=== PATIENT | female | born 1955 | race Caucasian/White ===

== ENCOUNTER 2020-01-15 12:29 | Outpatient (CLI) | payer OTHER, SELFPAY ==
--- NOTE | ~2020-01-15 | MR_ITS ---
EXAMINATION: MR knee LT wo con DATE: 01/15/2020 13:13 INDICATION: Acute left knee pain TECHNIQUE: Magnetic resonance imaging (MRI) of the left knee was performed without intravenous contra st. Sequences included coronal PD-weighted FSE, coronal PD-weighted FS FSE, sagittal T2-weighted FSE , sagittal PD-weighted FS FSE and axial PD weighted fat saturated FSE. COMPARISON: None. FINDINGS: Medial compartment: Full/near full-thickness radial tear at the posterior root of the medial meniscus. There is mild incr eased intrasubstance signal which does not unambiguously contact the articular surface to suggest add itional tear consistent with mucoid degeneration at the posterior body of the medial meniscus. Small region of deep chondral fissuring at the junction of the central to posterior weightbearing medial fe moral condyle. Partial thickness cartilage loss with mild chondral surface regularity at the anterior weightbearing medial femoral condyle. Lateral compartment: Lateral meniscus is normal. Articular cartilage is normal. Patellofemoral compartment: Full/near full-thickness chondral ulceration at the cephalad aspect of the patellar apical ridge with mild underlying subarticular edema at the patellar apical ridge. Additional deep chondral fissuring with mild subarticular edema at the more inferior medial facet. Deep chondral fissuring with mild und erlying cortical irregularity and subcortical edema at the central aspect of the trochlear groove and extending into the inferior aspect of the medial facet. Ligaments and tendons: Anterior and posterior cruciate ligaments are normal. There is mild edema extending along the deep an d superficial margin of the otherwise normal-appearing medial collateral ligament consistent with low -grade sprain. The extensor mechanism is normal. The visualized medial and lateral hamstring tendons as well as the iliotibial band are normal. Fluid: Small left knee joint effusion. No loose osteochondral bodies identified. Moderate-sized Roger's cyst . Osseous/other: Normal marrow signal centrally previously noted subarticular edema at the patellofemoral compartment. No fracture or pathologic marrow replacing process. IMPRESSION: 1. Full/near full-thickness radial tear at the posterior root of the medial meniscus. 2. Mild osteoarthritis in the medial and patellofemoral compartments with moderate grade chondromalac ia at the former and high-grade chondromalacia at the latter. 3. Low-grade sprain of the medial collateral ligament. 2. Small left knee joint effusion and moderate-sized Roger's cyst. Reviewed, dictated and finalized at location A. [employer] IMPRESSION: 1. Full/near full-thickness radial tear at the posterior root of the medial men iscus. 2. Mild osteoarthritis in the medial and patellofemoral compartments with moder ate grade chondromalacia at the former and high-grade chondromalacia at the lat ter. 3. Low-grade sprain of the medial collateral ligament. 2. Small left knee joint effusion and moderate-sized Roger's cyst.
== END 2020-01-15 12:30 ==
DX: M25.569 Pain in unspecified knee (principal); S83.242A Other tear of medial meniscus, current injury, left knee, initial encounter; M17.12 Unilateral primary osteoarthritis, left knee; M94.262 Chondromalacia, left knee; S83.412A Sprain of medial collateral ligament of left knee, initial encounter; M25.462 Effusion, left knee; M71.22 Synovial cyst of popliteal space [Baker], left knee
CPT/HCPCS: 73721

== ENCOUNTER 2020-12-03 14:22 | Emergency (ER) | payer OTHER, SELFPAY ==
--- NOTE | ~2020-12-03 | CT_ITS ---
EXAMINATION: CT abdomen pelvis w con INDICATION: Right lower quadrant pain TECHNIQUE: Computed tomographic images of the abdomen and pelvis were obtained after the administrati on of 100 cc of Omnipaque 350 intravenous contrast. The dose-length product (DLP) was 361.38 mGy-cm. Automated exposure control and iterative reconstruction technique were employed. COMPARISON: 05/13/2008 FINDINGS: The lung bases are clear. The heart size is normal. The liver is diffusely low in attenuati on when compared with the spleen, consistent with hepatic steatosis. The spleen, pancreas, gallbladde r, and adrenal glands are normal. The right kidney is normal. There is 3 mm cyst of the left kidney. A retroaortic left renal vein is noted. There is calcified atherosclerosis of the aorta and many of t he other arteries. No pathologically enlarged abdominal or pelvic lymph nodes are identified. The debbie endix is not definitely identified however no right lower quadrant inflammatory change is seen. There is a tiny focus of gas in the urinary bladder which could be due to catheterization. There is modera te lumbar spondylosis. IMPRESSION: 1. No CT correlate for the patient's symptoms. Reviewed, dictated and finalized at location A.
[2020-12-03 14:27] VITALS: BP 154/53; PULSE 57; RESP 20; TEMP 36.6; O2SAT 99
--- NOTE | 2020-12-03 15:26 | ED_ITS ---
HPI - Abdominal Pain General Chief Complaint: Abdominal Pain Stated Complaint: abd pain Time Seen by Provider: 12/03/20 15:26 Source: patient Related Data Allergies Allergy/AdvReac Type Severity Reaction Status Date / Time bupropion Allergy Unknown Unknown Verified 12/02/20 14:05 [facility] Past Medical History Medical History History of adverse reaction to anesthesia Unintentional weight loss Surgical History Surgical History History of hysterectomy 2006 Hx of appendectomy 1974 Family History Family History Other Arthritis Cerebrovascular accident Diabetes mellitus Heart disease High cholesterol Hypertension Social History Social History (Updated 12/02/20 @ 14:05 by Poppy Marquis CMA) Smoking status: Former smoker Tobacco type: cigarettes Alcohol intake: current Substance use: never Course Vital Signs Vital signs: Vital Signs Temperature 36.6 C 12/03/20 14:27 Pulse Rate 57 L 12/03/20 14:27 Respiratory Rate 20 12/03/20 14:27 Blood Pressure 154/53 H 12/03/20 14:27 Pulse Oximetry 99 12/03/20 14:27 Temperature 36.6 C 12/03/20 14:27 Pulse Rate 57 L 12/03/20 14:27 Respiratory Rate 20 12/03/20 14:27 Blood Pressure 154/53 H 12/03/20 14:27 Pulse Oximetry 99 12/03/20 14:27
[2020-12-03 15:45] LABS: Add Urine Microscopic? NO; Appearance Urine Clear (Clear); Bilirubin Urine Negative (Negative); Blood Urine Negative (Negative); Color Urine Yellow (Yellow); Glucose Urine UA Negative (Negative); Ketones Urine Negative (Negative); Leukocyte Esterase Ur Negative LEU/UL (Negative); Nitrate Urine Negative (Negative); Protein Urine Negative (Negative); Specific Grav Ur 1.009 (1.001-1.035); Urobilinogen Urine Negative mg/dL (<2.0)
[2020-12-03] MEDS: SODIUM CHLORIDE 0.9% IV 1,000 ML 999 ML IV CONT (15:49)
[2020-12-03] MEDS: MORPHINE SULFATE (*CRX) 4 MG/ML INJ IV PUSH (15:49)
[2020-12-03] MEDS: ONDANSETRON INJ 4 MG/2 ML VIAL IV PUSH (15:49)
[2020-12-03 15:50] LABS: Basophils Absolute Auto 0.1 K/mm3 (0.0-0.1); Basophils Percent Auto 0.8 % (0.2-1.2); Eosinophils Absolute Auto 0.1 K/mm3 (0-0.3); Eosinophils Percent Auto 1.1 % (0-4.4); Hematocrit 40.9 % (37.0-47.0); Immature Granulocyte Absolute 0.02 K/mm3 (0.00-0.031); Immature Granulocyte Percent A 0.2 % (0-0.5); Lymphocytes Absolute Auto 2.35 K/mm3 (0.9-3.2); Lymphocytes Percent Auto 25.4 % (18.3-44.2); Mean Corpuscular HGB Conc 34.2 g/dl (32-36); Mean Corpuscular Hemoglobin 30.8 pg (26-34); Mean Corpuscular Volume 90.1 fl (80-100); Mean Platelet Volume 8.8 fl (7.4-10.4); Monocytes Absolute Auto 0.8 K/mm3 (0.1-0.6); Monocytes Percent Auto 8.3 % (2.6-8.5); Neutrophils Percent Auto 64.2 % (45.5-73.1); Platelet Count Result 346 k/mm3 (150-375); Red Blood Count 4.54 M/mm3 (4.2-5.4); Red Cell Distribution Width 13.4 % (11.5-14.5); White Blood Count 9.3 K/mm3 (4.5-10.0)
[2020-12-03 16:08] LABS: Alanine Aminotransferase 19 U/L (4-35); Albumin Level 4.6 g/dL (3.5-5.1); Alkaline Phosphatase 53 U/L (38-126); Anion Gap 11 mmol/L (8-16); Aspartate Amino Transferase 32 U/L (14-36); Bilirubin,Total 0.7 mg/dL (0.2-1.3); Blood Urea Nitrogen 10 mg/dL (7-17); Calcium 9.3 mg/dL (8.4-10.2); Carbon Dioxide 22 mmol/L (22-30); Chloride 108 mmol/L (98-107); Estimated Glomerular Filt Rate > 60; Glucose 106 mg/dL (65-110); Lipase 96 U/L (23-300); Potassium 4.1 mmol/L (3.4-5.0); Sodium 141 mmol/L (137-145)
[2020-12-03] MEDS: KETOROLAC 30 MG/ML VIAL (*BKC) IV PUSH (19:28)
--- NOTE | 2020-12-03 20:41 | PC.NURSE ---
Dr. Driscoll at bedside at this time talking w/ pt and spouse.
[2020-12-03 21:05] VITALS: BP 145/67; PULSE 62; RESP 17; O2SAT 99
== END 2020-12-03 21:05 | disposition home or self-care (01) ==
PROVIDERS: Emergency Provider Emergency Medicine; PCP Internal Medicine Gastroenterology
DX: R10.31 Right lower quadrant pain (principal); Z87.891 Personal history of nicotine dependence
CPT/HCPCS: 36415; 74177; 80048; 80076; 81003; 83690; 85025; 96361; 96374; 96375; 99284; J1885; J2270; J2405; J7030; Q9967